=== PATIENT | female | born 1980 ===

== ENCOUNTER 2022-06-12 08:33 | Emergency (ER) | payer BC ==
[2022-06-12 09:34] LABS: CORONAVIRUS COVID-19 NAA NEGATIVE (NEGATIVE)
== END 2022-06-12 10:28 | disposition home or self-care (01) ==
LOC: DL.ED 08:33
DX: B34.9 Viral infection, unspecified (principal); F17.210 Nicotine dependence, cigarettes, uncomplicated; Z91.048 Other nonmedicinal substance allergy status; Z86.16 Personal history of COVID-19; Z20.822 Contact with and (suspected) exposure to COVID-19
CPT/HCPCS: 0240U; 99282; 99284